=== PATIENT | female | born 1985 | race Caucasian/White ===

== ENCOUNTER 2018-10-27 05:11 | Emergency (ER) | payer SELFPAY ==
--- NOTE | 2018-10-27 05:29 | Emergency Department Record ---
History of Present Illness - General Chief Complaint: General Stated Complaint: FOUND IN A DRIVEWAY IN A VECHICLE Time Seen by Provider: 10/27/18 05:22 Source: Patient Mode of Arrival: EMS Limitations: No limitations - History of Present Illness Initial comments: The patient was found sleeping in her car in someone else's driveway. EMS was called and brought the patient here to the ER even though the patient has no complaints. She denies any pain, trauma, injury, drug use or ingestion or any suicidal ideation. Initially she was a little confused after waking up but then quickly became oriented. Onset/Timin -: Hour(s) - [place] Coma Scale Eye Response: (4) Open spontaneously Motor Response: (6) Obeys commands Verbal Response: (5) Oriented [place] Total: 15 - Related Data Home Medications Medication Instructions Recorded Confirmed Last Taken Levonorgestrel [Mirena] 1 each IY ASDIR 10/27/18 10/27/18 Unknown Allergies Allergy/AdvReac Type Severity Reaction Status Date / Time amoxicillin AdvReac NAUSEA Verified 10/27/18 05:23 Travel Screening - Travel/Exposure Within Last 30 Days Have you traveled within the last 30 days?: No - Travel/Exposure Within Last Year Have you traveled outside the [place] in the last year?: No - Additonal Travel Details Have you been exposed to anyone with a communicable illness?: No - Travel Symptoms Symptom Screening: None Review of Systems Constitutional: Denies: Chills, Fever Eyes: Denies: Eye discharge ENT: Denies: Congestion Respiratory: Denies: Cough, Dyspnea Past Medical History - SOCIAL HISTORY Smoking Status: Current every day smoker Alcohol Use: Occasional Drug Use: Heavy Drug Use Detail:: Marijuana - RESPIRATORY Hx Respiratory Disorders: No - CARDIOVASCULAR Hx Cardio Disorders: No - NEURO Hx Neuro Disorders: No - GI Hx GI Disorders: No - Hx Genitourinary Disorders: No - ENDOCRINE Hx Endocrine Disorders: No - MUSCULOSKELETAL Hx Musculoskeletal Disorders: No - PSYCH Hx Psych Problems: Yes Hx Anxiety: Yes Hx Depression: Yes Family Medical History Any Significant Family History?: No Physical Exam - General General Appearance: Alert, Oriented x3, Cooperative, No acute distress - Head Head exam: Atraumatic, Normocephalic, Normal inspection - Eye Eye exam: Normal appearance, PERRL - ENT Throat exam: Normal inspection. negative: Tonsillar erythema, Tonsillar exudate - Neck Neck exam: Normal inspection, Full ROM. negative: Tenderness - Respiratory Respiratory exam: Normal lung sounds bilaterally. negative: Respiratory distres s - Cardiovascular Cardiovascular Exam: Regular rate, Normal rhythm, Normal heart sounds - GI/Abdominal GI/Abdominal exam: Soft, Normal bowel sounds. negative: Tenderness - Extremities Extremities exam: Normal inspection, Full ROM, Normal capillary refill. negative: Tenderness - Neurological Neurological exam: Alert, Normal gait (The patient is ambulating normally with no ataxia.), Oriented X3 (The patient is answering all questions appropriately. ). negative: Abnormal gait, Altered, Motor sensory deficit - Psychiatric Psychiatric exam: negative: Anxious, Depressed, Homicidal ideation, Suicidal ideation Course - Reevaluation(s) Reevaluation #1: The patient is doing very well at this time. She is up walking with no difficulty and is answering all questions appropriately. She exhibits no signs of intoxication or drug use and is very stable for discharge. She will need to call for a ride home. 10/27/18 06:11 Reevaluation #2: I did ask the patient about the positive Methamphetamine on the drug screen and she did say she took a half of an Adderal yesterday which would cause the drug screen to react that way I believe. 10/27/18 06:17 Medical Decision Making - Data Complexity MDM Data: Labs Ordered and/or Reviewed - Lab Data Result diagrams: 10/27/18 05:40 10/27/18 05:40 Disposition Disposition: Discharge Clinical Impression: Sleepiness Disposition: Home, Self-Care Condition: (2) Stable Instructions: Weakness (ED) Additional Instructions: Please see your doctor for any problems and return to the ER for any problems. Forms: Patient Portal Access Time of Disposition: 06:14 Quality - Quality Measures Quality Measures: N/A - Blood Pressure Screening View Details: Yes Does Patient Have Any of the Following: No Blood Pressure Classification: Normal BP Reading Systolic Measurement: 104 Diastolic Measurement: 59 Screening for High Blood Pressure: < Normal BP, F/U Not Required > [G8783]
[2018-10-27 05:46] LABS: ABSOLUTE NEUTROPHIL COUNT 4.04; BASO % 0.4 % (0-6); EOS % 3.5 % (0-6); GRAN % 56.1 % (47-80); HEMATOCRIT 43.8 % (35.0-47.0); HEMOGLOBIN 14.7 gm/dl (11.6-16.0); LYMPH % 32.8 % (16-45); MEAN CELL VOLUME 92.2 fl (81-97); MEAN CORPUSCULAR HEMOGLOBIN 30.9 pg (27-33); MEAN CORPUSCULAR HGB CONC 33.6 g/dl (32-36); MEAN PLATELET VOLUME 8.3 fl (7.4-10.4); MONO % 7.2 % (0-9); PLATELET COUNT 322 K/uL (130-400); RED BLOOD COUNT 4.75 M/uL (3.80-5.40); RED CELL DISTRIBUTION WIDTH 12.1 % (11.5-14.5); WHITE BLOOD COUNT W/O DIFF 7.2 K/uL (4.2-12.2)
[2018-10-27 05:49] LABS: METHAMPHETAMINE SCREEN DETECTED
[2018-10-27 05:50] LABS: AMPHETAMINE SCREEN URINE NOT DETECTED; BARBITURATE SCREEN URINE NOT DETECTED; BENZODIAZEPINE SCREEN URINE NOT DETECTED; COCAINE SCREEN URINE NOT DETECTED; METHADONE SCREEN URINE NOT DETECTED; OPIATE SCREEN URINE NOT DETECTED; OXYCODONE SCREEN URINE NOT DETECTED; PHENCYCLIDINE SCREEN URINE NOT DETECTED; PROPOXYPHENE SCREEN URINE NOT DETECTED; THC SCREEN URINE NOT DETECTED; TRICYCLIC ANTIDEPRESSANT SCRN NOT DETECTED
[2018-10-27 05:57] LABS: BLOOD UREA NITROGEN 16 mg/dL (6-20); CREATININE 0.7 mg/dL (0.5-0.9); EST GLOMERULAR FILTRATION RATE > 60 mL/min
[2018-10-27 05:58] LABS: TOTAL PROTEIN 6.9 g/dL (6.6-8.7)
[2018-10-27 06:00] LABS: GLUCOSE,RANDOM 105 mg/dL (74-109)
[2018-10-27 06:02] LABS: ALT/SGPT 12 U/L (<33)
[2018-10-27 06:03] LABS: ALB/GLOB RATIO 1.7 (1.1-1.8); ALBUMIN 4.3 g/dL (4.0-5.0); ALKALINE PHOSPHATASE 58 U/L (35-104)
[2018-10-27 06:04] LABS: AST/SGOT 15 U/L (10.0-35.0)
== END 2018-10-27 06:20 | disposition home or self-care (01) ==
LOC: ER 05:11
DX: G47.10 Hypersomnia, unspecified (principal); F17.210 Nicotine dependence, cigarettes, uncomplicated
CPT/HCPCS: 80053; 80305; 80320; 85025; 99284

== ENCOUNTER 2018-10-27 05:17 | Emergency (ER) | payer OTHER | END 2018-10-27 05:27 | disposition home or self-care (01) | LOC: ER 05:17 | DX: Z53.9 Procedure and treatment not carried out, unspecified reason (principal) ==